=== PATIENT | female | born 1975 | race Caucasian/White ===

== ENCOUNTER 2018-01-18 06:45 | Outpatient (CLI) | payer OTHER ==
[~2018-01-18 06:45] MED LIST: CHRM1TAB PO; DEXL60CA3 PO; DIAZ5TAB4 PO; DICY10CA59 PO; DIPH25CA83 PO; LACT1CAP73 PO; OMEG500C PO; ONDA4TAB12 PO; PEPP30SP PO; TRAM50TA2 PO; [UNRECOGNIZED DRUG - OTHER] PO; [UNRECOGNIZED DRUG - OTHER] PO
== END 2018-01-18 23:59 | disposition home or self-care (01) ==
LOC: RAD 06:45
PROVIDERS: ATTEND Nurse Practitioner Family
DX: M54.5 Low back pain (principal)
CPT/HCPCS: 72100; 72202

== ENCOUNTER 2018-01-19 11:11 | Outpatient (CLI) | payer OTHER | END 2018-01-19 23:59 | disposition home or self-care (01) | LOC: LAB 11:11 | PROVIDERS: ATTEND Nurse Practitioner Family | DX: Z00.00 Encounter for general adult medical examination without abnormal findings (principal) ==

== ENCOUNTER 2018-03-19 08:40 | Day surgery (SDC) | payer OTHER ==
[~2018-03-19] VITALS: Ht 167.6 cm; Wt 75.9 kg
[2018-03-19 08:54] VITALS: BP 115/76
[2018-03-19] MEDS ORDERED: MIDAZolam 5mg/5ml vial ONE (08:59)
[2018-03-19] MEDS ORDERED: fentaNYL/PF 50MCG/1 ML 2ML syringe ONE (08:59)
[2018-03-19 09:55] VITALS: BP 117/60
[2018-03-19 10:00] VITALS: BP 103/64
[2018-03-19 10:08] VITALS: BP 107/64
[2018-03-19 10:17] VITALS: BP 103/46
[2018-03-19 10:27] VITALS: BP 106/67
== END 2018-03-19 10:30 | disposition home or self-care (01) ==
LOC: GI LAB 08:40
PROVIDERS: ATTEND Internal Medicine Gastroenterology
DX: Z12.11 Encounter for screening for malignant neoplasm of colon (principal); K21.9 Gastro-esophageal reflux disease without esophagitis; J45.909 Unspecified asthma, uncomplicated; Z83.71 Family history of colonic polyps; Z80.0 Family history of malignant neoplasm of digestive organs; Z79.891 Long term (current) use of opiate analgesic; Z91.018 Allergy to other foods; Z88.8 Allergy status to other drugs, medicaments and biological substances; Z72.89 Other problems related to lifestyle; Z98.890 Other specified postprocedural states; Z79.899 Other long term (current) drug therapy
CPT/HCPCS: 45378; 99152; J2250; J3010; J7030; A4620; G0500

== ENCOUNTER 2021-02-13 13:11 | Outpatient (CLI) | payer BC ==
[~2021-02-13 13:11] MED LIST changes: -CHRM1TAB PO; -DIAZ5TAB4 PO; -DICY10CA59 PO; -DIPH25CA83 PO; -LACT1CAP73 PO; -ONDA4TAB12 PO
[2021-02-13 13:52] LABS: BASOPHILS % (AUTO) 1.3 % (0-1); EOSINOPHILS # (AUTO) 0.1 X10'3 (0-0.9); EOSINOPHILS % (AUTO) 4.2 % (0-6); HEMATOCRIT 41.5 % (35.0-45.0); HEMOGLOBIN 13.7 g/dl (12.0-16.0); LYMPHOCYTES # (AUTO) 1.6 X10'3 (1.1-4.8); LYMPHOCYTES % (AUTO) 46.4 % (21-51); MEAN CORPUSCULAR HEMOGLOBIN 30.9 PG (27.0-31.0); MEAN CORPUSCULAR HGB CONC 33.1 g/dL (33.0-36.5); MEAN CORPUSCULAR VOLUME 93.3 FL (78-98); MEAN PLATELET VOLUME 8.9 FL (7.4-10.4); MONOCYTES # (AUTO) 0.3 X10'3 (0-0.9); MONOCYTES % (AUTO) 9.7 % (2-12); NEUTROPHILS # (AUTO) 1.3 X10'3 (1.8-7.7); NEUTROPHILS % (AUTO) 38.4 % (42-75); PLATELET COUNT 207 X10'3 (140-440); RED BLOOD COUNT 4.45 X10'6 (4.20-5.60); RED CELL DISTRIBUTION WIDTH 13.5 % (11.5-14.5); WHITE BLOOD COUNT 3.4 X10'3 (4.5-11.0)
[2021-02-13 14:22] LABS: ALANINE AMINOTRANSFERASE 28 U/L (12-78); ALBUMIN 4.2 G/DL (3.4-5.0); ALBUMIN/GLOBULIN RATIO 1.1 (1.1-1.5); ALKALINE PHOSPHATASE 77 IU/L (46-116); ANION GAP 8 (8-16); ASPARTATE AMINO TRANSFERASE 12 U/L (10-37); BILIRUBIN,TOTAL 0.2 MG/DL (0.1-1.0); BLOOD UREA NITROGEN 13 MG/DL (7-18); BUN/CREATININE RATIO 20.3 (6.6-38.0); CALCIUM 8.9 MG/DL (8.5-10.1); CHLORIDE 107 MMOL/L (99-107); CHOL/HDL RATIO 2.8 (0.00-4.99); CHOLESTEROL 220 MG/DL (0-200); CREATININE 0.64 MG/DL (0.40-0.90); GLUCOSE 104 MG/DL (70-104); HDL CHOLESTEROL 78 MG/DL (35-60); LDL CHOLESTEROL 117 MG/DL (50-100); POTASSIUM 3.7 MMOL/L (3.5-5.1); SODIUM 143 MMOL/L (135-145); TOTAL CARBON DIOXIDE 28.2 MMOL/L (24-32); TOTAL PROTEIN 7.9 G/DL (6.4-8.2); TRIGLYCERIDES 55 MG/DL (20-135); eGFR > 90 ML/MIN
[2021-02-15 10:04] LABS: ESTRADIOL 27.1 pg/mL (.); FSH, SERUM 69.5 mIU/mL (.); LUTEINIZING HORMONE 34.2 mIU/mL (.); PROGESTERONE <0.1 ng/mL (.)
== END 2021-02-13 23:59 | disposition home or self-care (01) ==
LOC: LAB 13:11
PROVIDERS: ATTEND Nurse Practitioner Family
DX: Z00.00 Encounter for general adult medical examination without abnormal findings (principal); N92.6 Irregular menstruation, unspecified
CPT/HCPCS: 36415; 80053; 80061; 82306; 82670; 83001; 83002; 84144; 84402; 84403; 84443; 85025

== ENCOUNTER 2021-03-12 13:57 | Outpatient (CLI) | payer BC | END 2021-03-12 23:59 | disposition home or self-care (01) | LOC: RAD 13:57 | PROVIDERS: ATTEND Nurse Practitioner Family | DX: M25.562 Pain in left knee (principal) | CPT/HCPCS: 73564 ==

== ENCOUNTER 2021-04-06 03:59 | Outpatient (CLI) | payer BC | END 2021-04-06 23:59 | disposition home or self-care (01) | LOC: RAD 03:59 | PROVIDERS: ATTEND Family Medicine | DX: M25.562 Pain in left knee (principal) | CPT/HCPCS: 73721 ==

== ENCOUNTER 2021-06-23 06:35 | Emergency (ER) | payer BC ==
[~2021-06-23] VITALS: Ht 170.2 cm; Wt 63.0 kg
== END 2021-06-23 07:08 | disposition home or self-care (01) ==
LOC: ER 06:35
DX: U07.1 COVID-19 (principal); K21.9 Gastro-esophageal reflux disease without esophagitis; G89.29 Other chronic pain; M54.9 Dorsalgia, unspecified; Z91.018 Allergy to other foods; Z79.899 Other long term (current) drug therapy
CPT/HCPCS: 87635; 99283; C9803

== ENCOUNTER 2022-02-11 14:17 | Outpatient (CLI) | payer BC | END 2022-02-11 23:59 | disposition home or self-care (01) | LOC: RAD 14:17 | PROVIDERS: ATTEND Nurse Practitioner Family | DX: M25.532 Pain in left wrist (principal) | CPT/HCPCS: 73110 ==

== ENCOUNTER 2022-03-13 13:22 | Outpatient (CLI) | payer BC ==
[2022-03-13 13:55] LABS: BASOPHILS % (AUTO) 0.7 % (0-1); EOSINOPHILS # (AUTO) 0.1 X10'3 (0-0.9); HEMATOCRIT 38.4 % (35.0-45.0); HEMOGLOBIN 12.6 g/dl (12.0-16.0); LYMPHOCYTES # (AUTO) 1.4 X10'3 (1.1-4.8); LYMPHOCYTES % (AUTO) 37.1 % (21-51); MEAN CORPUSCULAR HEMOGLOBIN 30.4 PG (27.0-31.0); MEAN CORPUSCULAR HGB CONC 32.8 g/dL (33.0-36.5); MEAN CORPUSCULAR VOLUME 92.6 FL (78-98); MEAN PLATELET VOLUME 9.2 FL (7.4-10.4); MONOCYTES # (AUTO) 0.4 X10'3 (0-0.9); MONOCYTES % (AUTO) 9.6 % (2-12); NEUTROPHILS # (AUTO) 1.9 X10'3 (1.8-7.7); NEUTROPHILS % (AUTO) 49.6 % (42-75); PLATELET COUNT 181 X10'3 (140-440); RED BLOOD COUNT 4.15 X10'6 (4.20-5.60); RED CELL DISTRIBUTION WIDTH 14.2 % (11.5-14.5); WHITE BLOOD COUNT 3.9 X10'3 (4.5-11.0)
[2022-03-13 14:08] LABS: ALANINE AMINOTRANSFERASE 19 U/L (12-78); ALBUMIN 3.6 G/DL (3.4-5.0); ALBUMIN/GLOBULIN RATIO 1.2 (1.1-1.5); ALKALINE PHOSPHATASE 47 IU/L (46-116); ANION GAP 8 (8-16); ASPARTATE AMINO TRANSFERASE 10 U/L (10-37); BILIRUBIN,TOTAL 0.3 MG/DL (0.1-1.0); BLOOD UREA NITROGEN 12 MG/DL (7-18); CALCIUM 8.5 MG/DL (8.5-10.1); CHLORIDE 105 MMOL/L (99-107); CREATININE 0.63 MG/DL (0.40-0.90); GLUCOSE 94 MG/DL (70-104); POTASSIUM 3.7 MMOL/L (3.5-5.1); SODIUM 140 MMOL/L (135-145); TOTAL CARBON DIOXIDE 26.9 MMOL/L (24-32); TOTAL PROTEIN 6.7 G/DL (6.4-8.2); eGFR > 90 ML/MIN
[2022-03-13 15:00] LABS: RHEUM FACTOR QUAL REFLEX TITER NEGATIVE (Neg)
== END 2022-03-13 23:59 | disposition home or self-care (01) ==
LOC: LAB 13:22
PROVIDERS: ATTEND Nurse Practitioner Family
DX: M25.532 Pain in left wrist (principal); R39.15 Urgency of urination
CPT/HCPCS: 36415; 80053; 85025; 85651; 86038; 86430

== ENCOUNTER 2022-08-14 08:07 | Day surgery (SDC) | payer BC ==
[~2022-08-14] VITALS: Ht 167.6 cm; Wt 62.3 kg
[2022-08-14 08:12] VITALS: BP 115/81
[2022-08-14] MEDS ORDERED: CETI-194 PO (08:21)
[2022-08-14] MEDS ORDERED: RABE20TA18 PO (08:21)
[2022-08-14] MEDS ORDERED: GABA-530 PO (08:22)
[2022-08-14] MEDS ORDERED: MULT-227 PO (08:22)
[2022-08-14] MEDS ORDERED: SUCR1ORA12 PO (08:23)
[2022-08-14] MEDS ORDERED: META-25 PO (08:25)
[2022-08-14] MEDS ORDERED: MIDAZolam 1 MG/ML 5ML VIAL ONE (08:30)
[2022-08-14] MEDS ORDERED: fentaNYL/PF 50MCG/1 ML 2ML syringe ONE (08:30)
[2022-08-14] MEDS ORDERED: LIDOcaine Viscous 15ml cup ONE (08:30)
[2022-08-14 08:59] VITALS: BP 99/58
[2022-08-14 09:32] VITALS: BP 105/78
[2022-08-14 09:39] VITALS: BP 111/64
[2022-08-14 09:49] VITALS: BP 108/75
== END 2022-08-14 10:03 | disposition home or self-care (01) ==
LOC: GI LAB 08:07
PROVIDERS: ATTEND Internal Medicine Gastroenterology
DX: Z12.11 Encounter for screening for malignant neoplasm of colon (principal); K21.9 Gastro-esophageal reflux disease without esophagitis; K44.9 Diaphragmatic hernia without obstruction or gangrene; K29.70 Gastritis, unspecified, without bleeding; K31.7 Polyp of stomach and duodenum; Z80.0 Family history of malignant neoplasm of digestive organs; K22.89 Other specified disease of esophagus; Z79.01 Long term (current) use of anticoagulants; Z79.899 Other long term (current) drug therapy; Z86.010 Personal history of colon polyps
CPT/HCPCS: 43239; 45378; 99152; J2250; J3010; J7030; Z7512; 99153; A4620

== ENCOUNTER 2022-12-24 13:47 | Outpatient (CLI) | payer BC ==
[~2022-12-24 13:47] MED LIST changes: +CETI-194 PO; +GABA-530 PO; +META-25 PO; +MULT-227 PO; -OMEG500C PO; +RABE20TA18 PO; +SUCR1ORA12 PO
== END 2022-12-24 23:59 | disposition home or self-care (01) ==
LOC: RAD 13:47
PROVIDERS: ATTEND Physician Assistant Surgical
DX: M65.4 Radial styloid tenosynovitis [de Quervain] (principal); M25.442 Effusion, left hand; M85.632 Other cyst of bone, left forearm; M25.532 Pain in left wrist
CPT/HCPCS: 73221

== ENCOUNTER 2023-03-18 12:09 | Outpatient (CLI) | payer BC ==
[2023-03-18 12:49] LABS: BASOPHILS % (AUTO) 1.5 % (0-1); EOSINOPHILS # (AUTO) 0.1 X10'3 (0-0.9); EOSINOPHILS % (AUTO) 4.8 % (0-6); HEMATOCRIT 40.7 % (35.0-45.0); HEMOGLOBIN 13.5 g/dl (12.0-16.0); LYMPHOCYTES # (AUTO) 1.3 X10'3 (1.1-4.8); LYMPHOCYTES % (AUTO) 44.4 % (21-51); MEAN CORPUSCULAR HEMOGLOBIN 30.9 PG (27.0-31.0); MEAN CORPUSCULAR HGB CONC 33.1 g/dL (33.0-36.5); MEAN CORPUSCULAR VOLUME 93.4 FL (78-98); MEAN PLATELET VOLUME 9.2 FL (7.4-10.4); MONOCYTES # (AUTO) 0.3 X10'3 (0-0.9); MONOCYTES % (AUTO) 10.2 % (2-12); NEUTROPHILS # (AUTO) 1.2 X10'3 (1.8-7.7); NEUTROPHILS % (AUTO) 39.1 % (42-75); PLATELET COUNT 188 X10'3 (140-440); RED BLOOD COUNT 4.35 X10'6 (4.20-5.60); RED CELL DISTRIBUTION WIDTH 13.4 % (11.5-14.5)
[2023-03-18 13:10] LABS: ALANINE AMINOTRANSFERASE 20 U/L (12-78); ALBUMIN 4.1 G/DL (3.4-5.0); ALBUMIN/GLOBULIN RATIO 1.2 (1.1-1.5); ALKALINE PHOSPHATASE 70 IU/L (46-116); ANION GAP 8 (8-16); ASPARTATE AMINO TRANSFERASE 14 U/L (10-37); BILIRUBIN,TOTAL 0.4 MG/DL (0.1-1.0); BLOOD UREA NITROGEN 16 MG/DL (7-18); BUN/CREATININE RATIO 25.8 (10.0-20.0); CHLORIDE 104 MMOL/L (99-107); CREATININE 0.62 MG/DL (0.40-0.90); GLUCOSE 99 MG/DL (70-104); SODIUM 141 MMOL/L (135-145); TOTAL CARBON DIOXIDE 28.7 MMOL/L (24-32); TOTAL PROTEIN 7.5 G/DL (6.4-8.2); eGFR > 90 ML/MIN
[2023-03-18 14:56] LABS: HEMOGLOBIN A1C 5.4 % (4.5-6.2)
[2023-03-19 16:00] LABS: CHOL/HDL RATIO 2.9 (0.00-4.99); CHOLESTEROL 231 MG/DL (0-200); HDL CHOLESTEROL 80 MG/DL (35-60); LDL CHOLESTEROL 123 MG/DL (50-100); TRIGLYCERIDES 38 MG/DL (20-135)
[2023-03-20 11:06] LABS: ESTRADIOL 46.6 pg/mL (.)
[2023-03-20 11:11] LABS: FSH, SERUM 79.4 mIU/mL (.); LUTEINIZING HORMONE 35.5 mIU/mL (.); THYROID PEROXIDASE AB 15 IU/mL (0-34)
[2023-03-22 16:14] LABS: ANTI-MULLERIAN HORMONE <0.015 ng/mL (.)
== END 2023-03-18 23:59 | disposition home or self-care (01) ==
LOC: RAD 12:09
PROVIDERS: ATTEND Physician Assistant Medical
DX: Z00.01 Encounter for general adult medical examination with abnormal findings (principal); R68.89 Other general symptoms and signs; R79.89 Other specified abnormal findings of blood chemistry; K90.49 Malabsorption due to intolerance, not elsewhere classified; E03.9 Hypothyroidism, unspecified; I10 Essential (primary) hypertension; E78.00 Pure hypercholesterolemia, unspecified
CPT/HCPCS: 36415; 80053; 80061; 82306; 82397; 82670; 83001; 83002; 83036; 84432; 84439; 84443; 85025; 86376; 86800

== ENCOUNTER 2023-07-14 06:36 | Day surgery (SDC) | payer BC ==
[2023-07-08 10:22] LABS: BASOPHILS % (AUTO) 0.9 % (0-1); EOSINOPHILS # (AUTO) 0.1 X10'3 (0-0.9); EOSINOPHILS % (AUTO) 4.3 % (0-6); LYMPHOCYTES # (AUTO) 1.4 X10'3 (1.1-4.8); MEAN CORPUSCULAR VOLUME 93.9 FL (78-98); MEAN PLATELET VOLUME 8.9 FL (7.4-10.4); MONOCYTES # (AUTO) 0.3 X10'3 (0-0.9); MONOCYTES % (AUTO) 9.8 % (2-12); NEUTROPHILS # (AUTO) 1.4 X10'3 (1.8-7.7); PRE OP HEMATOCRIT 40.5 % (35.0-45.0); PRE OP HEMOGLOBIN 13.4 g/dL (12.0-16.0); PRE OP PLATELET COUNT 194 X10'3 (140-440); PRE OP WHITE BLOOD COUNT 3.3 10'3 (4.8-10.8); RED BLOOD COUNT 4.32 X10'6 (4.20-5.60); RED CELL DISTRIBUTION WIDTH 13.5 % (11.5-14.5)
[2023-07-08 10:47] LABS: ALBUMIN 3.9 G/DL (3.4-5.0); ALBUMIN/GLOBULIN RATIO 1.1 (1.1-1.5); ALKALINE PHOSPHATASE 74 IU/L (46-116); BLOOD UREA NITROGEN 21 MG/DL (7-18); BUN/CREATININE RATIO 26.6 (10.0-20.0); CALCIUM 9.1 MG/DL (8.5-10.1); CHLORIDE 105 MMOL/L (99-107); CREATININE 0.79 MG/DL (0.40-0.90); PRE OP ALT 26 U/L (30-65); PRE OP ANION GAP 6 (8-16); PRE OP AST 17 U/L (10-37); PRE OP BILIRUB, TOTAL 0.3 MG/DL (0.0-1.0); PRE OP GLUCOSE 105 MG/DL (70-104); PRE OP POTASSIUM 3.9 MMOL/L (3.4-5.1); PRE OP SODIUM 141 MMOL/L (135-145); TOTAL CARBON DIOXIDE 30.1 MMOL/L (24-32); TOTAL PROTEIN 7.3 G/DL (6.4-8.2); eGFR 78 ML/MIN
[2023-07-14] VITALS (9 sets, daily range): BP systolic 122–132; BP diastolic 71–82; PULSE 61–79; RESP 14–17; TEMP 97.9; O2SAT 89–98
[~2023-07-14] VITALS: Ht 167.6 cm; Wt 63.3 kg
[~2023-07-14 06:36] MED LIST changes: +ASHWAGANDA; -DEXL60CA3 PO; +GABA100C PO; +HAIR,SKIN,NAILS; -META-25 PO; -MULT-227 PO; -PEPP30SP PO; -SUCR1ORA12 PO; +[UNRECOGNIZED DRUG - OTHER]; +[UNRECOGNIZED DRUG - OTHER]; -[UNRECOGNIZED DRUG - OTHER] PO; -[UNRECOGNIZED DRUG - OTHER] PO; +cefazolin 2gm/D5W 100mL 100 ML IV ONE; +famotidine 20mg tablet PO ONE; +ringers solution, lacted 1,000 ML IV SCH
[2023-07-14] MEDS ORDERED: LIDOcaine 0.5% (5mg/ml) 50ml vial ONE (07:32)
[2023-07-14] MEDS ORDERED: fentaNYL/PF 50MCG/1 ML 2ML syringe ONE (10:57)
[2023-07-14] MEDS ORDERED: midazolam 1 mg/ML 2ml injection ONE (10:58)
[2023-07-14] MEDS ORDERED: BUPIVAcaine/PF 2.5mg/ml (0.25%) 10ml vial ONE (11:07)
[2023-07-14] MEDS ORDERED: ketamine 50mg/5ml syringe ONE (11:21)
[2023-07-14] MEDS ORDERED: diphenhydrAMINE 50 mg/ml inj ONE (11:38)
[2023-07-14] MEDS ORDERED: BUPIVAcaine/PF 2.5mg/ml (0.25%) 10ml vial IJ ONE (11:39)
--- NOTE | 2023-07-14 11:43 | NUR ---
Received from OR via , accompanied by Anesthesiologist DR TYSON and report given by Anesthesiolgist. VSS. PATIENT ON ROOM AIR AT 97% ALERT AND ORIENTED, STATES NO PAIN. IV IN R WRIST 20G INTACT. ICE ON LEFT HAND Addendum: 07/14/23 at 1156 by Cindy Siddiqui RN Amended: Links added.
--- NOTE | 2023-07-14 12:23 | NUR ---
PATIENT MEETS DISCHARGE CRITERIA. VSS. IV DC'D WITH NO ISSUES. PATIENT STATES NO PAIN THROUGHOUT RECOVERY. EDUCATED PATIENT ON DISCHARGE INSTRUCTIONS. Addendum: 07/14/23 at 1238 by Cindy Siddiqui RN Amended: Links added.
== END 2023-07-14 12:23 | disposition home or self-care (01) ==
LOC: PAS 06:36
PROVIDERS: ATTEND Orthopaedic Surgery Hand Surgery
DX: M65.4 Radial styloid tenosynovitis [de Quervain] (principal); G62.9 Polyneuropathy, unspecified; K21.9 Gastro-esophageal reflux disease without esophagitis; Z98.890 Other specified postprocedural states; Z88.8 Allergy status to other drugs, medicaments and biological substances; Z79.899 Other long term (current) drug therapy; Z72.89 Other problems related to lifestyle; Z82.49 Family history of ischemic heart disease and other diseases of the circulatory system; Z83.3 Family history of diabetes mellitus
CPT/HCPCS: 25000; 36415; 80053; 82948; 85025; A6222; J0690; J1200; J2250; J3010; J3490; J7030; J7120; Z7506; Z7512; A4215; A4618; A6449; A7000

== ENCOUNTER 2024-03-17 15:28 | Outpatient (CLI) | payer BC ==
[~2024-03-17 15:28] MED LIST changes: -cefazolin 2gm/D5W 100mL 100 ML IV ONE; -famotidine 20mg tablet PO ONE; -ringers solution, lacted 1,000 ML IV SCH
== END 2024-03-17 23:59 | disposition home or self-care (01) ==
LOC: RAD 15:28
PROVIDERS: ATTEND Physician Assistant
DX: N83.292 Other ovarian cyst, left side (principal); N92.0 Excessive and frequent menstruation with regular cycle
CPT/HCPCS: 76856; 93976

== ENCOUNTER 2024-03-18 13:21 | Outpatient (CLI) | payer BC ==
[2024-03-18 13:54] LABS: EOSINOPHILS # (AUTO) 0.1 X10'3 (0-0.9); MONOCYTES # (AUTO) 0.2 X10'3 (0-0.9)
[2024-03-18 13:55] LABS: WHITE BLOOD COUNT 2.6 X10'3 (4.5-11.0)
[2024-03-18 14:05] LABS: BASOPHILS % (AUTO) 1.5 % (0-1); MEAN CORPUSCULAR VOLUME 94.2 FL (78-98)
[2024-03-18 14:08] LABS: EOSINOPHILS % (AUTO) 4.4 % (0-6); HEMATOCRIT 41.1 % (35.0-45.0); HEMOGLOBIN 13.5 g/dl (12.0-16.0); LYMPHOCYTES # (AUTO) 1.3 X10'3 (1.1-4.8); LYMPHOCYTES % (AUTO) 47.8 % (21-51); MEAN CORPUSCULAR HGB CONC 32.9 g/dL (33.0-36.5); MEAN PLATELET VOLUME 9.8 FL (7.4-10.4); MONOCYTES % (AUTO) 9.2 % (2-12); NEUTROPHILS % (AUTO) 37.1 % (42-75); PLATELET COUNT 179 X10'3 (140-440); RED BLOOD COUNT 4.37 X10'6 (4.20-5.60); RED CELL DISTRIBUTION WIDTH 13.6 % (11.5-14.5)
[2024-03-18 14:09] LABS: HEMOGLOBIN A1C 5.4 % (4.5-6.2)
[2024-03-18 14:16] LABS: ALANINE AMINOTRANSFERASE 17 U/L (12-78); ALBUMIN/GLOBULIN RATIO 1.2 (1.1-1.5); ALKALINE PHOSPHATASE 70 IU/L (46-116); ANION GAP 6 (8-16); ASPARTATE AMINO TRANSFERASE 11 U/L (10-37); BILIRUBIN,TOTAL 0.3 MG/DL (0.1-1.0); BLOOD UREA NITROGEN 16 MG/DL (7-18); BUN/CREATININE RATIO 22.5 (10.0-20.0); CALCIUM 8.7 MG/DL (8.5-10.1); CHLORIDE 107 MMOL/L (99-107); CHOL/HDL RATIO 2.8 (0.00-4.99); CHOLESTEROL 189 MG/DL (0-200); CREATININE 0.71 MG/DL (0.40-0.90); GLUCOSE 89 MG/DL (70-104); HDL CHOLESTEROL 68 MG/DL (35-60); LDL CHOLESTEROL 108 MG/DL (50-100); SODIUM 144 MMOL/L (135-145); THYROID STIMULATING HORMONE 0.68 ulU/ml (0.34-4.50); TOTAL CARBON DIOXIDE 31.2 MMOL/L (24-32); TOTAL PROTEIN 7.4 G/DL (6.4-8.2); TRIGLYCERIDES 34 MG/DL (20-135); eGFR 87 ML/MIN
[2024-03-18 14:28] LABS: GIANT PLATELET FEW; LARGE PLATELETS FEW; PLATELET ESTIMATE NORMAL; TOTAL CELLS COUNTED 100
[2024-03-20 14:52] LABS: CREATININE, URINE 109.2 mg/dL (Not Estab.); VITAMIN D, 25-HYDROXY 63.5 ng/mL (30.0-100.0)
== END 2024-03-18 23:59 | disposition home or self-care (01) ==
LOC: LAB 13:21
PROVIDERS: ATTEND Physician Assistant
DX: Z00.01 Encounter for general adult medical examination with abnormal findings (principal); R79.89 Other specified abnormal findings of blood chemistry; I10 Essential (primary) hypertension; E78.00 Pure hypercholesterolemia, unspecified; E55.9 Vitamin D deficiency, unspecified; R94.6 Abnormal results of thyroid function studies; R80.9 Proteinuria, unspecified; R73.01 Impaired fasting glucose
CPT/HCPCS: 80053; 80061; 82043; 82306; 82570; 83036; 84443; 85007; 85025

== ENCOUNTER 2024-04-25 07:05 | Outpatient (CLI) | payer BC | END 2024-04-25 23:59 | disposition home or self-care (01) | LOC: ER 07:05 | PROVIDERS: ATTEND Physician Assistant Surgical | DX: Z01.810 Encounter for preprocedural cardiovascular examination (principal) | CPT/HCPCS: 93005 ==

== ENCOUNTER 2024-07-12 06:05 | Day surgery (SDC) | payer BC ==
[2024-07-05 14:20] LABS: BASOPHILS % (AUTO) 0.9 % (0-1); EOSINOPHILS # (AUTO) 0.1 X10'3 (0-0.9); EOSINOPHILS % (AUTO) 2.7 % (0-6); LYMPHOCYTES # (AUTO) 1.5 X10'3 (1.1-4.8); MEAN CORPUSCULAR HEMOGLOBIN 31.3 PG (27.0-31.0); PRE OP HEMOGLOBIN 13.4 g/dL (12.0-16.0); RED BLOOD COUNT 4.26 X10'6 (4.20-5.60)
[2024-07-05 14:22] LABS: LYMPHOCYTES % (AUTO) 31.9 % (21-51); MEAN CORPUSCULAR HGB CONC 33.6 g/dL (33.0-36.5); MEAN CORPUSCULAR VOLUME 93.4 FL (78-98); MEAN PLATELET VOLUME 9.3 FL (7.4-10.4); MONOCYTES # (AUTO) 0.4 X10'3 (0-0.9); MONOCYTES % (AUTO) 7.3 % (2-12); NEUTROPHILS # (AUTO) 2.8 X10'3 (1.8-7.7); NEUTROPHILS % (AUTO) 57.2 % (42-75); PRE OP HEMATOCRIT 39.8 % (35.0-45.0); PRE OP PLATELET COUNT 200 X10'3 (140-440); PRE OP WHITE BLOOD COUNT 4.8 10'3 (4.8-10.8); RED CELL DISTRIBUTION WIDTH 13.4 % (11.5-14.5)
[2024-07-05 14:38] LABS: ALBUMIN/GLOBULIN RATIO 1.1 (1.1-1.5); ALKALINE PHOSPHATASE 63 IU/L (46-116); BLOOD UREA NITROGEN 19 MG/DL (7-18); BUN/CREATININE RATIO 31.1 (10.0-20.0); CALCIUM 9.2 MG/DL (8.5-10.1); CHLORIDE 103 MMOL/L (99-107); CREATININE 0.61 MG/DL (0.40-0.90); PRE OP ALT 29 U/L (30-65); PRE OP ANION GAP 8 (8-16); PRE OP AST 22 U/L (10-37); PRE OP BILIRUB, TOTAL 0.4 MG/DL (0.0-1.0); PRE OP GLUCOSE 112 MG/DL (70-104); PRE OP SODIUM 137 MMOL/L (135-145); TOTAL CARBON DIOXIDE 26.1 MMOL/L (24-32); TOTAL PROTEIN 7.6 G/DL (6.4-8.2); eGFR > 90 ML/MIN
[2024-07-12] VITALS (10 sets, daily range): BP systolic 107–147; BP diastolic 65–82; PULSE 63–79; RESP 12–16; TEMP 97.3; O2SAT 96–99
[~2024-07-12] VITALS: Ht 167.6 cm; Wt 63.5 kg
[~2024-07-12 06:05] MED LIST changes: -ASHWAGANDA; +BIOTIN PO; -CETI-194 PO; +COLLAGEN PO; +DEXL60CA3 PO; -HAIR,SKIN,NAILS; +LORA10TA7 PO; +MULTI VITAMIN PO; +PROBIOTIC PO; -RABE20TA18 PO; -TRAM50TA2 PO; -[UNRECOGNIZED DRUG - OTHER]; -[UNRECOGNIZED DRUG - OTHER]; +[UNRECOGNIZED DRUG - OTHER] PO
[2024-07-12] MEDS ORDERED: LIDOcaine 1% 30ml preserv. free vial ONE (07:47)
[2024-07-12] MEDS ORDERED: BUPIVAcaine/PF 2.5mg/ml (0.25%) 10ml vial ONE (07:48)
[2024-07-12] MEDS: ringers solution, lacted 1,000 ML IV SCH (07:54)
[2024-07-12] MEDS: cefazolin 2gm/D5W 100mL 100 ML IV ONE (07:54)
[2024-07-12] MEDS: famotidine 20mg tablet PO ONE (07:54)
[2024-07-12] MEDS ORDERED: LIDOcaine 2% (20mg/ml) 5ml vial ONE (08:50)
[2024-07-12] MEDS ORDERED: propofol inj 20 ML IV ONE (08:50)
[2024-07-12] MEDS ORDERED: ondansetron/PF 4mg/2ml inj ONE (08:50)
[2024-07-12] MEDS ORDERED: dexamethasone sod phosphate 4mg/ml inj. ONE (08:50)
[2024-07-12] MEDS ORDERED: sevoflurane 250ml liquid IH ONE (08:53)
[2024-07-12] MEDS: BUPIVAcaine 2.5mg/ml inj 50ml vial (contains preservative) SQ ONE (09:05)
[2024-07-12] MEDS ORDERED: morphine 4 MG/ML inj SYRINge IV PRN (09:20)
[2024-07-12] MEDS ORDERED: ringers solution, lacted 1,000 ML IV SCH (09:20)
[2024-07-12] MEDS ORDERED: enalaprilat dihydrate 2.5mg/2ml vial IV PRN (09:20)
[2024-07-12] MEDS ORDERED: meperidine/PF 25mg/ml syringe IV PRN ×2 (09:20)
[2024-07-12] MEDS ORDERED: ondansetron/PF 4mg/2ml inj IV PRN (09:20)
[2024-07-12] MEDS ORDERED: proCHLORperazine 10 MG/2 ml inj IV PRN (09:20)
[2024-07-12] MEDS ORDERED: labetalol 20mg/4ml (5mg/ml) syringe IV PRN (09:20)
[2024-07-12] MEDS ORDERED: morphine 2 MG/ML inj. syringe IV PRN (09:20)
[2024-07-12] MEDS: meperidine/PF 25mg/ml syringe IV PRN (09:31)
[2024-07-12] MEDS: HYDROcodone/acetaminophen 5mg/325mg tablet PO ONE (10:12)
== END 2024-07-12 10:25 | disposition home or self-care (01) ==
LOC: PAS 06:05
PROVIDERS: ATTEND Orthopaedic Surgery Hand Surgery
DX: M65.4 Radial styloid tenosynovitis [de Quervain] (principal); K21.9 Gastro-esophageal reflux disease without esophagitis; G62.9 Polyneuropathy, unspecified; Z79.899 Other long term (current) drug therapy; Z98.890 Other specified postprocedural states; Z88.8 Allergy status to other drugs, medicaments and biological substances; Z82.49 Family history of ischemic heart disease and other diseases of the circulatory system; Z82.61 Family history of arthritis; Z83.3 Family history of diabetes mellitus
CPT/HCPCS: 25000; 36415; 80053; 82948; 85025; J0690; J1100; J2175; J2405; J2704; J3490; J7030; J7120; Z7506; Z7512; A4215; A4618; A6449; A7000

== ENCOUNTER 2024-12-22 16:32 | Outpatient (CLI) | payer BC ==
[2024-12-22 16:53] LABS: EOSINOPHILS # (AUTO) 0.1 X10'3 (0-0.9); EOSINOPHILS % (AUTO) 2.4 % (0-6); LYMPHOCYTES # (AUTO) 1.6 X10'3 (1.1-4.8); MONOCYTES # (AUTO) 0.3 X10'3 (0-0.9); NEUTROPHILS # (AUTO) 2.7 X10'3 (1.8-7.7); WHITE BLOOD COUNT 4.8 X10'3 (4.5-11.0)
[2024-12-22 16:54] LABS: BASOPHILS % (AUTO) 0.7 % (0-1); HEMATOCRIT 39.5 % (35.0-45.0); HEMOGLOBIN 13.5 g/dl (12.0-16.0); MEAN CORPUSCULAR HGB CONC 34.1 g/dL (33.0-36.5); MEAN CORPUSCULAR VOLUME 93.7 FL (78-98); MEAN PLATELET VOLUME 9.3 FL (7.4-10.4); MONOCYTES % (AUTO) 6.7 % (2-12); NEUTROPHILS % (AUTO) 57.2 % (42-75); PLATELET COUNT 201 X10'3 (140-440); RED BLOOD COUNT 4.21 X10'6 (4.20-5.60); RED CELL DISTRIBUTION WIDTH 12.8 % (11.5-14.5)
== END 2024-12-22 23:59 | disposition home or self-care (01) ==
LOC: LAB 16:32
PROVIDERS: ATTEND Physician Assistant
DX: Z00.01 Encounter for general adult medical examination with abnormal findings (principal); R79.89 Other specified abnormal findings of blood chemistry; I10 Essential (primary) hypertension; E78.00 Pure hypercholesterolemia, unspecified; E55.9 Vitamin D deficiency, unspecified; R94.6 Abnormal results of thyroid function studies; R80.9 Proteinuria, unspecified; R73.01 Impaired fasting glucose
CPT/HCPCS: 36415; 85025

== ENCOUNTER 2025-05-26 12:40 | Outpatient (CLI) | payer BC ==
[2025-05-26 13:16] LABS: BASOPHILS % (AUTO) 1.4 % (0-1); EOSINOPHILS # (AUTO) 0.1 X10'3 (0-0.9); EOSINOPHILS % (AUTO) 4.8 % (0-6); HEMATOCRIT 41.6 % (35.0-45.0); HEMOGLOBIN 13.8 g/dl (12.0-16.0); LYMPHOCYTES # (AUTO) 1.7 X10'3 (1.1-4.8); LYMPHOCYTES % (AUTO) 55.2 % (21-51); MEAN CORPUSCULAR HEMOGLOBIN 30.5 PG (27.0-31.0); MEAN CORPUSCULAR HGB CONC 33.2 g/dL (33.0-36.5); MEAN PLATELET VOLUME 9.4 FL (7.4-10.4); MONOCYTES # (AUTO) 0.3 X10'3 (0-0.9); MONOCYTES % (AUTO) 8.2 % (2-12); NEUTROPHILS # (AUTO) 0.9 X10'3 (1.8-7.7); NEUTROPHILS % (AUTO) 30.4 % (42-75); PLATELET COUNT 204 X10'3 (140-440); RED BLOOD COUNT 4.52 X10'6 (4.20-5.60); RED CELL DISTRIBUTION WIDTH 13.4 % (11.5-14.5); WHITE BLOOD COUNT 3.1 X10'3 (4.5-11.0)
--- NOTE | 2025-05-26 13:40 | RADIOLOGY REPORT ---
CLINICAL INDICATION: RIGHT HIP PAIN TECHNIQUE: 1 radiographic views of the pelvis and 2 views of the right hip were obtained. Comparison: None FINDINGS/IMPRESSION: There is no evidence of acute fracture or dislocation. The visualized joint space is well maintained. The alignment is anatomical. There is no radiopaque foreign body.
[2025-05-26 13:55] LABS: ALANINE AMINOTRANSFERASE 26 U/L (12-78); ALBUMIN 4.2 G/DL (3.4-5.0); ALBUMIN/GLOBULIN RATIO 1.2 (1.1-1.5); ALKALINE PHOSPHATASE 78 IU/L (46-116); ANION GAP 8 (8-16); ASPARTATE AMINO TRANSFERASE 14 U/L (10-37); BILIRUBIN,TOTAL 0.4 MG/DL (0.1-1.0); BLOOD UREA NITROGEN 20 MG/DL (7-18); BUN/CREATININE RATIO 28.2 (10.0-20.0); CALCIUM 9.1 MG/DL (8.5-10.1); CHLORIDE 104 MMOL/L (99-107); CREATININE 0.71 MG/DL (0.40-0.90); GLUCOSE 98 MG/DL (70-104); HDL CHOLESTEROL 63 MG/DL (35-60); LDL CHOLESTEROL 137 MG/DL (50-100); POTASSIUM 4.1 MMOL/L (3.5-5.1); SODIUM 140 MMOL/L (135-145); THYROID STIMULATING HORMONE 2.03 ulU/ml (0.34-4.50); TOTAL CARBON DIOXIDE 27.8 MMOL/L (24-32); TOTAL PROTEIN 7.6 G/DL (6.4-8.2); TRIGLYCERIDES 70 MG/DL (20-135); eGFR 87 ML/MIN
[2025-05-26 13:59] LABS: PLATELET ESTIMATE NORMAL; TOTAL CELLS COUNTED 100
[2025-05-26 14:25] LABS: CHOL/HDL RATIO 3.8 (0.00-4.99); CHOLESTEROL 238 MG/DL (0-200); HEMOGLOBIN A1C 5.3 % (4.5-6.2)
[2025-05-28 11:47] LABS: CREATININE, URINE 89.4 mg/dL (Not Estab.); MICROALBUMIN,U,RANDOM 4.9 ug/mL (Not Estab.)
== END 2025-05-26 23:59 | disposition home or self-care (01) ==
LOC: LAB 12:40
PROVIDERS: ATTEND Physician Assistant
DX: M25.551 Pain in right hip (principal); R79.89 Other specified abnormal findings of blood chemistry; E78.00 Pure hypercholesterolemia, unspecified; R94.6 Abnormal results of thyroid function studies; R78.89 Finding of other specified substances, not normally found in blood; E55.9 Vitamin D deficiency, unspecified; R80.9 Proteinuria, unspecified; R68.89 Other general symptoms and signs; Z13.220 Encounter for screening for lipoid disorders
CPT/HCPCS: 73502; 80053; 80061; 82043; 82306; 82570; 83036; 84443; 85007; 85025

== ENCOUNTER 2025-07-03 00:19 | Outpatient (CLI) | payer BC | END 2025-07-03 23:59 | disposition home or self-care (01) | LOC: LAB 00:19 | PROVIDERS: ATTEND Physician Assistant | DX: N95.1 Menopausal and female climacteric states (principal); I10 Essential (primary) hypertension; N95.8 Other specified menopausal and perimenopausal disorders; Z79.890 Hormone replacement therapy | CPT/HCPCS: 36415; 82670; 83001; 83002; 84144; 84402; 84439; 84443 ==

== ENCOUNTER 2025-08-13 01:00 | Outpatient (CLI) | payer BC ==
[2025-08-15 17:08] LABS: MEAN PLATELET VOLUME 9.0 FL (7.4-10.4); RED CELL DISTRIBUTION WIDTH 13.7 % (11.5-14.5)
[2025-08-17 11:13] LABS: THIIODOTHRONINE, FREE, SERUM 2.8 pg/mL (2.0-4.4); TRIIODOTHYRONINE (T3) 82.0 ng/dL (71-180)
== END 2025-08-13 23:59 | disposition home or self-care (01) ==
LOC: LAB 01:00
PROVIDERS: ATTEND Nurse Practitioner Family
DX: E78.00 Pure hypercholesterolemia, unspecified (principal); E55.9 Vitamin D deficiency, unspecified; R94.6 Abnormal results of thyroid function studies; R79.89 Other specified abnormal findings of blood chemistry; E07.9 Disorder of thyroid, unspecified; R80.9 Proteinuria, unspecified; R68.89 Other general symptoms and signs; Z13.220 Encounter for screening for lipoid disorders
CPT/HCPCS: 36415; 84439; 84443; 84480; 84481; 85025; 86376

== ENCOUNTER 2025-10-26 15:11 | Outpatient (CLI) | payer BC ==
--- NOTE | 2025-10-26 17:42 | RADIOLOGY REPORT ---
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 Sagittal, axial and coronal T1 and T2-weighted images were obtained. FINDINGS: Lumbar vertebrae normal in height signal intensity and alignment Diffuse loss of height and signal intensity of all intervertebral discs On transaxial images there is no significant narrowing of the central canal and neural foramina by bony or soft tissue pathology The cord ends at T12-L1 and is normal in appearance IMPRESSION: 1. Degenerative disc disease. No evidence of significant narrowing of the central canal and neural foramina or nerve root compression
== END 2025-10-26 23:59 | disposition home or self-care (01) ==
LOC: MRI 15:11
PROVIDERS: ATTEND Physician Assistant Surgical
DX: M51.369 Other intervertebral disc degeneration, lumbar region without mention of lumbar back pain or lower extremity pain (principal); M25.551 Pain in right hip; M46.1 Sacroiliitis, not elsewhere classified; M99.04 Segmental and somatic dysfunction of sacral region
CPT/HCPCS: 72148